=== PATIENT | male | born 1965 | race Caucasian/White ===

== ENCOUNTER 2023-01-08 20:35 | Emergency (ER) | payer OTHER ==
[~2023-01-08] VITALS: Ht 170.2 cm; Wt 72.6 kg
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
[2023-01-08] MEDS ORDERED: KETOROLAC TROMETHAMINE INJ 30 MG/ML VIAL IM ONE (21:00)
[2023-01-08] MEDS ORDERED: KETOROLAC TROMETHAMINE INJ 30 MG/ML VIAL ONE (21:09)
--- NOTE | 2023-01-08 21:48 | NUR ---
PT TAKEN TO CT VIA W/C
--- NOTE | 2023-01-08 21:54 | NUR ---
CAME BACK FROM [facility]
--- NOTE | 2023-01-08 22:18 | NUR ---
Patient discharged to home in stable condition. Written and verbal after care instructions given. Patient verbalizes understanding of instruction.
[2023-01-08 22:19] VITALS: BP 142/75; TEMP 98.8
== END 2023-01-08 22:19 ==
LOC: ER 20:48
DX: S40.812A Abrasion of left upper arm, initial encounter (principal); S40.811A Abrasion of right upper arm, initial encounter; T14.8XXA Other injury of unspecified body region, initial encounter; M25.532 Pain in left wrist; M25.522 Pain in left elbow; V89.2XXA Person injured in unspecified motor-vehicle accident, traffic, initial encounter; Y93.89 Activity, other specified; Y92.89 Other specified places as the place of occurrence of the external cause; Y99.8 Other external cause status
CPT/HCPCS: 99284; 96372; 73070; 73090; 73110; J1885